=== PATIENT | male | born 1990 | race Caucasian/White ===

== ENCOUNTER 2021-01-03 07:13 | Day surgery (SDC) | payer OTHER ==
[~2021-01-03] VITALS: Ht 177.8 cm; Wt 79.5 kg
[2021-01-03] VITALS (7 sets, daily range): BP systolic 104–164; BP diastolic 61–93
--- NOTE | 2021-01-03 07:42 | NUR ---
PATIENT AMBULATORY TO ROOM. PATIENT IS ALERT AND ORIENTED X3. VS OBTAINED. DR POON NOTIFIED. NEW ORDERS RECEIVED. CONSENT OBTAINED. ADMISSION ASSESSMENT COMPLETED AT THIS TIME. IV ESTABLISHED. LABS OBTAINED AND SENT FOR REFERENCE. ORIENTED JUAN CARLOS TO ROOM AND UNIT. CALL LIGHT IN REACH. WILL CONTINUE TO MONITOR.
[2021-01-03 08:17] LABS: HEMATOCRIT 43.5 % (39.0-50.0); HEMOGLOBIN 14.6 g/dl (14.0-18.0); IMMATURE GRANULOCYTES 0.1 % (0.0-5.0); MEAN CELL VOLUME 88.2 fL CALC (80.0-100.0); MEAN CORPUSCULAR HGB 29.6 pG CALC (26.0-32.0); MEAN CORPUSCULAR HGB CONC 33.6 g/dL CAL (32.0-36.0); NEUT# 6.91 thou/uL (1.82-7.42); RED BLOOD COUNT 4.93 mill/uL (4.70-6.10); RED CELL DISTRI WIDTH 12.8 % (11.5-15.5)
[2021-01-03 09:17] LABS: ALBUMIN 4.7 g/dL (3.2-5.0); ALKALINE PHOSPHATASE 111 u/l (38-126); ANION GAP 14 (6-22 (CALC)); BILIRUBIN, TOTAL 0.9 mg/dL (0.0-1.4); BUN 20 mg/dL (9-20); BUN/CREATININE RATIO 13 (12-20 (CALC)); CARBON DIOXIDE 28 mmol/l (22-30); CHLORIDE 101 mmol/l (95-108); CREATININE 1.6 mg/dL (0.7-1.3); GFR 50 ML/MIN (>=60 (CALC)); GFR FOR AFR.AMER. > 60 ML/MIN (>=60 (CALC)); POTASSIUM 3.7 mmol/l (3.5-5.1); SGOT/AST 27 u/l (17-59); SODIUM 140 mmol/l (137-146); TOTAL PROTEIN 7.7 g/dL (6.3-8.2)
--- NOTE | 2021-01-03 10:20 | NUR ---
DR. POON AT BEDSIDE.
--- NOTE | 2021-01-03 10:20 | NUR ---
REASSESS VS. DR. POON NOTIFIED. NEW ORDERS RECEIVED AT THIS TIME. WILL MEDICATE WHEN MEDICATIONS PROFILED FROM PHARMACY AND CONTINUE TO MONITOR.
--- NOTE | 2021-01-03 13:15 | NUR ---
PT LEFT UNIT IN STABLE CONDITION ACCOMPIANED BY ANR NURSE.
[2021-01-03] MEDS ORDERED: CLONIDINE0.1 MG PO (16:25)
[2021-01-03] MEDS ORDERED: KLONOPIN0.5 MG PO (16:26)
--- NOTE | 2021-01-03 18:20 | NUR ---
PT ARRIVED TO FLOOR VIA BED IN STABLE CONDITION. BEDSIDE REPORT FROM NADYA DONALDSON NURSE.
--- NOTE | 2021-01-03 19:00 | NUR ---
SBAR RECEIVED FROM JOSE MIGUEL INFANTE. PATIENT RESTING QUIETLY IN BED EYES CLOSED. NO DISTRESS NOTED. BED IN LOW POSITION, LOCKED. BED ALARM ACTIVATED. CALL LIGHT WITHIN REACH.
--- NOTE | 2021-01-03 20:29 | NUR ---
ASSESSMENT COMPLETE. PATIENT A LITTLE RESTLESS AND EXPRESSES CONCERNS OF FEELING WITHDRAWLS, SYMPTOM OF SWEATING. ATIVAN 2MG IV GIVEN. NO FURTHER CONCERNS EXPRESSED. CALL LIGHT WITHIN REACH.
--- NOTE | 2021-01-03 22:30 | NUR ---
PATIENT RESTING QUIETLY, NO DISTRESS NOTED. EASILY AROUSED, MEDICATION TAKEN WITHOUT DIFFICULTY. DENIES PAIN AT THIS TIME. CALL LIGHT WITHIN REACH.
[2021-01-04] VITALS: BP 120/61
[2021-01-04 04:07] VITALS: BP 118/60
--- NOTE | 2021-01-04 04:48 | NUR ---
PATIENT RESTING QUIETLY, EASY TO AROUSE. MEDICATION GIVEN WITHOUT DIFFICULTY. NO DISTRESS NOTED. DENIES PAIN AT THIS TIME. CALL LIGHT WITHIN REACH.
[2021-01-04 07:30] VITALS: BP 122/60
--- NOTE | 2021-01-04 07:52 | NUR ---
PATIENT LAYING IN BED WHEN AWAKEN IS ALERT AND ORIENTED AT THIS TIME. PATIENT [employer] DONE SEE INTERVENTIONS. LUNG GAMING ARE CLEAR AT THIS TIME. PATIENT OFFERED WATER AND DID DRINK AND SWALLOW WITHOUT ISSUES AT THIS TIME. SIDERAILS ARE UP X 3 BED ALARM ON ANR NURSE NADYA WAS IN TO SEE PATIENT. WILL CONTINUE TO MONITOR.
[2021-01-04 08:51] LABS: ALBUMIN 3.9 g/dL (3.2-5.0); ALKALINE PHOSPHATASE 84 u/l (38-126); ANION GAP 13 (6-22 (CALC)); BUN 17 mg/dL (9-20); BUN/CREATININE RATIO 13 (12-20 (CALC)); CARBON DIOXIDE 24 mmol/l (22-30); CHLORIDE 109 mmol/l (95-108); CREATININE 1.3 mg/dL (0.7-1.3); GFR > 60 ML/MIN (>=60 (CALC)); GFR FOR AFR.AMER. > 60 ML/MIN (>=60 (CALC)); MAGNESIUM 2.4 mg/dL (1.6-2.3); POTASSIUM 3.8 mmol/l (3.5-5.1); SGOT/AST 25 u/l (17-59); SODIUM 142 mmol/l (137-146); TOTAL PROTEIN 6.5 g/dL (6.3-8.2)
--- NOTE | 2021-01-04 09:10 | NUR ---
LABS CALLED TO DR. POON. NEW ORDERS FOR POTASSIUM 80MEQ PO X1 NOW. NURSE CARING FOR PT NOTIFIED OF NEW ORDERS AT THIS TIME.
--- NOTE | 2021-01-04 11:24 | NUR ---
PATIENT ALERT AND ORIENTED AT THIS TIME ANR NURSE RN NADYA IN TO SEE PATIENT AT THIS TIME. PATIENT INSTRUCTED TO GET UP FOR LUNCH AND TO WORK ON GETTING CLEANED UP AND DRESSED. PATIENT VERBALIZES UNDERSTANDING OF THESE INSTRUCTIONS AT THIS TIME. WILL CONTINUE TO MONITOR.
--- NOTE | 2021-01-04 12:36 | NUR ---
PATIENT UP IN SHOWER AT THIS TIME. PATIENT STATED WHEN ASKED HOW HE FEELS PATIENT STATED "BETTER". WILL CONTINUE TO MONITOR.
--- NOTE | 2021-01-04 13:19 | NUR ---
PATIENT D/C AT THIS TIME. D/C INSTRUCTIONS GONE OVER WITH PATIENT AND PATIENT VERBALIZES UNDERSTANDING OF D/C INSTRUCTIONS. PATIENT STATED "MOM" HAS ALREADY BILLING SPEC MEDICATION FROM PHARMACY.
--- NOTE | 2021-01-04 14:15 | NUR ---
Discharge instructions given. Patient verbalizes understanding of same. Discharged in stable condition via Wheelchair to Home with family. All belongings sent with pt. PATIENT LEFT ROOM VIA WHEELCHAIR ASSISTED BY NADYA MURILLO ANR NURSE.
== END 2021-01-04 14:12 | disposition home or self-care (01) | DRG 897 ==
LOC: ANR 07:13 → MS2 07:18 → ANR 13:30
PROVIDERS: ATTEND Anesthesiology
DX: F11.20 Opioid dependence, uncomplicated (principal)
CPT/HCPCS: J2060; J2354